=== PATIENT | female | born 1960 | race Caucasian/White ===

== ENCOUNTER → 2025-09-09 07:14 | Outpatient (CLI) | payer OTHER, SELFPAY ==
--- NOTE | 2025-09-09 07:19 | DI.MRI.S_ITS ---
PROCEDURE: MR KNEE RT WO CON INDICATIONS: Other tear of medial meniscu TECHNIQUE: Noncontrast sagittal PD fast spin echo and T2 fast spin echo with fat saturation, sagittal 3-D FLASH with fat saturation; coronal T1 spin echo and PD fast spin echo with fat saturation, and axial PD fast spin echo with fat saturation through the knee. COMPARISON: None. FINDINGS: Image quality: Excellent. Some images are limited by patient motion or other artifacts. Menisci: Abnormal appearance of the medial meniscus with complex tear posterior horn extending into the posterior meniscal root and midbody. On the coronal images the medial meniscus is displaced medially anterior horn is relatively intact. Suspected subtle horizontal tear anterior horn of the lateral meniscus which is otherwise intact. Cruciate ligaments: Mild increased T2 weighted signal distal anterior cruciate ligament, injury/strain but with intact fibers without complete tear or retraction. Posterior cruciate ligament is normal. Medial structures: Mild increased T2 weighted signal/edema adjacent to the medial collateral ligament may represent mild grade 1 injury. Mild increased medial bursal fluid posterior medially. Moderate popliteal cyst posterior medial measures up to 5 cm cc by 2.7 cm AP by 2.5 cm transverse maximal dimensions. Probable partial rupture of the popliteal cyst with surrounding edema cephalad and medial. Mild increased T2 weighted signal, injury/strain or partial tear proximal medial head of the gastrocnemius insertion and mild tendinopathy distal semimembranosus insertion. Lateral structures: The lateral collateral ligament, long and short heads of the biceps femoris tendon appear intact. The popliteus tendon appears normal. Iliotibial band appears normal. Anterior structures: The quadriceps and patellar tendons appear intact. Patellar alignment is normal. No femoral trochlear dysplasia or ventral trochlear prominence. No significant edema in the infrapatellar fat pad. Bones and cartilage: Moderate diffuse cartilaginous thinning in the medial compartment as well as in the medial patellar facet with 3 mm focal cartilage defect and underlying subchondral edema as well as other 1-2 mm focal cartilage defects in the central patellar ridge and medial patellar facet facet. Lateral compartment cartilage with mild diffuse thinning without focal defect. No MR evidence of fracture or significant bone contusion. Joint space: Moderate knee joint effusion. IMPRESSION: Medial meniscus tear as discussed above. Moderate popliteal cyst partially ruptured. 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 Knee joint effusion and other findings as above. Dictated by: Jayson Alvarez M.D. on 09/10/2025 at 22:00 Approved by: Jayson Alvarez M.D. on 09/10/2025 at 22:14
== END ==
LOC: MRI 07:17
PROVIDERS: PCP Internal Medicine; Referring Provider Orthopaedic Surgery Foot and Ankle Surgery; Visit Provider Orthopaedic Surgery Foot and Ankle Surgery
DX: S83.231D Complex tear of medial meniscus, current injury, right knee, subsequent encounter (principal); M25.461 Effusion, right knee; M66.0 Rupture of popliteal cyst; X58.XXXD Exposure to other specified factors, subsequent encounter
CPT/HCPCS: 73721